=== PATIENT | male | born 1945 | race Caucasian/White ===

== ENCOUNTER → 2019-04-22 10:18 | Outpatient (CLI) | payer MEDICARE, SELFPAY ==
--- NOTE | 2019-04-22 10:33 | XR_ITS ---
PROCEDURE: XR ACUTE ABDOMEN SERIES CLINICAL INDICATION: EPIGASTRIC PAIN,NAUSEA,CONSTIPATION COMPARISON: CXR CHEST(2 VIEWS-NOT PORTABLE) from 05/19/2016 FINDINGS: The lung linares are well expanded and appear clear of infiltrate. There is mild generalized cardiomegaly with aortic tortuosity however the vascularity is normal and there is no pleural fluid. There are bilateral total shoulder prosthesis is noted. Abdominal film show scattered stool and gas in the ascending transverse and descending colon and there is stool within the rectum. There are no dilated loops of small bowel. There is no evidence of free air. There are no abnormal soft tissue shadows. There is prominent multilevel degenerate changes of the lumbar spine with previous fusion of L5 on S1. IMPRESSION: 1. Mild cardiomegaly, no acute pathology noted. 2. Essentially nondiagnostic abdomen, there is no significant evidence of constipation Dictated by: Dr. Wally Saldivar MD 04/22/2019 11:05 Signed by: <Electronically signed by Dr. Wally Saldivar MD in [place]> 04/22/2019 11:05
[2019-04-22 10:35] LABS: Basophils % 0.4 % (0.1-2.0); Eosinophils # 0.2 K/mm3 (0.0-0.4); Eosinophils % 4.2 % (0.1-12.0); Hematocrit 39.8 % (42.0-52.0); Hemoglobin 12.7 g/dL (14.1-18.0); Lymphocytes # 1.5 K/mm3 (0.7-4.5); Lymphocytes % 30.4 % (10-50); Mean Corpuscular HGB Conc 31.8 g/dL (31.8-35.4); Mean Corpuscular Hemoglobin 31.9 pg (27.0-31.2); Mean Corpuscular Volume 100.1 fl (80-94); Mean Platelet Volume 8.4 fl (7.4-10.4); Monocytes # 0.4 K/mm3 (0.1-1.0); Monocytes % 7.5 % (1.7-9.3); Neutrophils # 2.8 K/mm3 (1.8-7.8); Neutrophils % 57.5 % (37.0-80.0); Platelet Count 199 K/mm3 (142-424); Red Blood Count 3.98 M/mm3 (4.60-6.20); Red Cell Distribution Width 12.7 % (11.5-17.5); White Blood Count 4.8 K/mm3 (4.8-10.8)
[2019-04-22 10:49] LABS: Alanine Aminotransferase 33 U/L (12-78); Albumin Level 3.6 gm/dL (3.4-5.0); Albumin/Globulin Ratio 1.2 (1.1-1.8); Alkaline Phosphatase 99 U/L (46-116); Amylase 62 U/L (25-115); Anion Gap 12.1 mEq/L (5-15); Aspartate Amino Transferase 31 U/L (15-37); Bilirubin,Total 0.8 mg/dL (0.2-1.0); Blood Urea Nitrogen 29 mg/dL (7-18); Calcium 9.2 mg/dL (8.5-10.1); Carbon Dioxide 27 mmol/L (21.0-32.0); Chloride 105 mmol/L (98-107); Estimated Glomerular Filt Rate 40 ml/min (>60); GFR (African American) 48 ML/MIN (>60); Globulin 3.1 gm/dl (1.3-3.2); Glucose 87 mg/dL (74-106); Potassium 4.1 mmoL/L (3.5-5.1); Sodium 140 mmol/L (136-145); Total Protein,Serum 6.7 gm/dL (6.4-8.2)
== END ==
PROVIDERS: Visit Provider Internal Medicine
DX: R10.13 Epigastric pain (principal); K59.00 Constipation, unspecified; R11.0 Nausea
CPT/HCPCS: 36415; 74021; 80053; 82150; 85025

== ENCOUNTER → 2019-07-14 08:24 | Outpatient (POV) | payer MEDICARE, SELFPAY | PROVIDERS: Visit Provider Dentist | DX: Z00.00 Encounter for general adult medical examination without abnormal findings (principal) ==

== ENCOUNTER → 2021-07-10 16:26 | Outpatient (CLI) | payer MEDICARE, SELFPAY ==
[2021-07-10 19:05] LABS: Basophils % 0.6 % (0.1-2.0); Eosinophils # 0.2 K/mm3 (0.0-0.4); Hematocrit 44.2 % (42.0-52.0); Hemoglobin 14.4 g/dL (14.1-18.0); Lymphocytes # 1.5 K/mm3 (0.7-4.5); Lymphocytes % 29.4 % (10-50); Mean Corpuscular HGB Conc 32.6 g/dL (31.8-35.4); Mean Corpuscular Hemoglobin 32.5 pg (27.0-31.2); Mean Corpuscular Volume 99.6 fl (80-94); Mean Platelet Volume 10.2 fl (7.4-10.4); Monocytes # 0.5 K/mm3 (0.1-1.0); Monocytes % 8.8 % (1.7-9.3); Neutrophils # 3.1 K/mm3 (1.8-7.8); Neutrophils % 58.2 % (37.0-80.0); Platelet Count 209 K/mm3 (142-424); Red Blood Count 4.44 M/mm3 (4.60-6.20); Red Cell Distribution Width 13.3 % (11.5-17.5); White Blood Count 5.3 K/mm3 (4.8-10.8)
[2021-07-10 19:14] LABS: Chloride 102 mmol/L (98-107); Potassium 3.9 mmoL/L (3.5-5.1); Sodium 141 mmol/L (136-145)
[2021-07-10 19:16] LABS: Alanine Aminotransferase 43 U/L (12-78); Albumin Level 4.1 g/dl (3.5-5.0); Albumin/Globulin Ratio 1.7 (1.1-1.8); Alkaline Phosphatase 112 U/L (38-126); Anion Gap 11.9 mEq/L (5-15); Aspartate Amino Transferase 53 U/L (17-59); Bilirubin,Total 0.6 mg/dl (0.2-1.3); Blood Urea Nitrogen 18 mg/dl (9-20); Carbon Dioxide 31 mmol/L (22.0-30.0); Estimated Glomerular Filt Rate 65 ml/min (>60); GFR (African American) 79 ML/MIN (>60); Globulin 2.4 g/dL (1.3-3.2); Total Protein,Serum 6.5 g/dl (6.3-8.2)
[2021-07-10 19:17] LABS: Calcium 9.2 mg/dl (8.4-10.2); Chol/HDL Ratio 2.1 (1-3.5); Cholesterol 122 mg/dl (140-200); Glucose 74 mg/dl (74-100); HDL Cholesterol 58 mg/dl (40-60); Triglycerides 43 mg/dl (30-150); VLDL Cholesterol 9 mg/dL (0-40)
[2021-07-10 19:28] LABS: Direct LDL Cholesterol 54.02 mg/dL (100-129)
[2021-07-10 21:50] LABS: Prostate Specific Ag Screen 1.6 ng/ml (0.0-4.0)
== END ==
PROVIDERS: Visit Provider Internal Medicine
DX: I25.10 Atherosclerotic heart disease of native coronary artery without angina pectoris (principal); I10 Essential (primary) hypertension; E78.5 Hyperlipidemia, unspecified; M15.0 Primary generalized (osteo)arthritis; N40.1 Benign prostatic hyperplasia with lower urinary tract symptoms; Z12.5 Encounter for screening for malignant neoplasm of prostate
CPT/HCPCS: 80053; 80061; 85025; G0103

== ENCOUNTER → 2022-01-10 12:35 | Outpatient (CLI) | payer MEDICARE, SELFPAY ==
[2022-01-10 13:25] LABS: Basophils % 0.6 % (0.1-2.0); Eosinophils # 0.1 K/mm3 (0.0-0.4); Eosinophils % 2.7 % (0.1-12.0); Hematocrit 43.7 % (42.0-52.0); Hemoglobin 14.7 g/dL (14.1-18.0); Lymphocytes # 1.3 K/mm3 (0.7-4.5); Lymphocytes % 29.7 % (10-50); Mean Corpuscular HGB Conc 33.6 g/dL (31.8-35.4); Mean Corpuscular Hemoglobin 33.1 pg (27.0-31.2); Mean Corpuscular Volume 98.6 fl (80-94); Mean Platelet Volume 9.9 fl (7.4-10.4); Monocytes # 0.4 K/mm3 (0.1-1.0); Monocytes % 9.1 % (1.7-9.3); Neutrophils # 2.5 K/mm3 (1.8-7.8); Neutrophils % 57.8 % (37.0-80.0); Platelet Count 191 K/mm3 (142-424); Red Blood Count 4.43 M/mm3 (4.60-6.20); White Blood Count 4.3 K/mm3 (4.8-10.8)
[2022-01-10 14:11] LABS: Chloride 102 mmol/L (98-107); Sodium 138 mmol/L (136-145)
[2022-01-10 14:13] LABS: Blood Urea Nitrogen 24 mg/dl (9-20); Estimated Glomerular Filt Rate 54 ml/min (>60); GFR (African American) 65 ML/MIN (>60)
[2022-01-10 14:14] LABS: Alanine Aminotransferase 48 U/L (12-78); Albumin Level 3.9 g/dl (3.5-5.0); Albumin/Globulin Ratio 1.6 (1.1-1.8); Alkaline Phosphatase 117 U/L (38-126); Anion Gap 11.3 mEq/L (5-15); Aspartate Amino Transferase 65 U/L (17-59); Bilirubin,Total 0.9 mg/dl (0.2-1.3); Calcium 9.3 mg/dl (8.4-10.2); Carbon Dioxide 28 mmol/L (22.0-30.0); Cholesterol 137 mg/dl (140-200); Globulin 2.5 g/dL (1.3-3.2); Glucose 94 mg/dl (74-100); HDL Cholesterol 63 mg/dl (40-60); Potassium 3.3 mmoL/L (3.5-5.1); Total Protein,Serum 6.4 g/dl (6.3-8.2); Triglycerides 45 mg/dl (30-150); VLDL Cholesterol 9 mg/dL (0-40)
[2022-01-10 14:16] LABS: Chol/HDL Ratio 2.2 (1-3.5)
[2022-01-10 14:25] LABS: Direct LDL Cholesterol 56.46 mg/dL (100-129)
== END ==
PROVIDERS: PCP Internal Medicine; Visit Provider Internal Medicine
DX: I25.10 Atherosclerotic heart disease of native coronary artery without angina pectoris (principal); I10 Essential (primary) hypertension; I73.9 Peripheral vascular disease, unspecified; R73.01 Impaired fasting glucose; E78.5 Hyperlipidemia, unspecified
CPT/HCPCS: 80053; 80061; 85025

== ENCOUNTER → 2022-06-17 16:59 | Outpatient (CLI) | payer MEDICARE, SELFPAY ==
[2022-06-17 18:22] LABS: Basophils % 0.7 % (0.1-2.0); Eosinophils # 0.1 K/mm3 (0.0-0.4); Eosinophils % 1.7 % (0.1-12.0); Hematocrit 43.3 % (42.0-52.0); Hemoglobin 14.2 g/dL (14.1-18.0); Lymphocytes # 1.2 K/mm3 (0.7-4.5); Lymphocytes % 24.6 % (10-50); Mean Corpuscular HGB Conc 32.8 g/dL (31.8-35.4); Mean Corpuscular Hemoglobin 32.7 pg (27.0-31.2); Mean Corpuscular Volume 99.4 fl (80-94); Monocytes # 0.4 K/mm3 (0.1-1.0); Monocytes % 8.2 % (1.7-9.3); Neutrophils # 3.1 K/mm3 (1.8-7.8); Neutrophils % 64.8 % (37.0-80.0); Platelet Count 180 K/mm3 (142-424); Red Blood Count 4.35 M/mm3 (4.60-6.20); Red Cell Distribution Width 13.5 % (11.5-17.5); White Blood Count 4.9 K/mm3 (4.8-10.8)
[2022-06-17 20:29] LABS: Alanine Aminotransferase 51 U/L (12-78); Albumin/Globulin Ratio 1.5 (1.1-1.8); Alkaline Phosphatase 112 U/L (38-126); Aspartate Amino Transferase 69 U/L (17-59); Bilirubin,Total 0.6 mg/dl (0.2-1.3); Blood Urea Nitrogen 18 mg/dl (9-20); Calcium 9.1 mg/dl (8.4-10.2); Carbon Dioxide 30 mmol/L (22.0-30.0); Chloride 101 mmol/L (98-107); Estimated Glomerular Filt Rate 46 ml/min (>60); GFR (African American) 55 ML/MIN (>60); Globulin 2.7 g/dL (1.3-3.2); Glucose 79 mg/dl (74-100); Sodium 143 mmol/L (136-145); Total Protein,Serum 6.7 g/dl (6.3-8.2)
[2022-06-17 20:44] LABS: Erythrocyte Sedimentation Rate 18 mm/hr (0-20)
[2022-06-17 21:32] LABS: Vitamin B12 919 pg/mL (239-931)
[2022-06-17 21:35] LABS: Folate > 20.00 ng/mL
[2022-06-17 23:58] LABS: Free T4 (Free Thyroxine) 0.88 ng/dl (0.78-2.19)
[2022-06-18 12:48] LABS: Thyroid Stimulating Hormone 1.78 uIU/mL (0.465-4.68)
[2022-06-19 12:12] LABS: Rapid Plasma Reagin Ab Titer Non Reactive (NonRea<1:1)
== END ==
PROVIDERS: PCP Internal Medicine; Visit Provider Internal Medicine
DX: R41.3 Other amnesia (principal)
CPT/HCPCS: 80053; 82607; 82746; 83655; 84439; 84443; 85025; 85651; 86592

== ENCOUNTER → 2022-06-25 07:55 | Outpatient (CLI) | payer MEDICARE, SELFPAY ==
--- NOTE | 2022-06-25 07:59 | CT_ITS ---
FINAL REPORT CLINICAL HISTORY: MEMORY LOSS FINDINGS: Axial images of the head were obtained without contrast. Coronal reformatted images were also obtained. This study was performed with techniques to keep radiation doses as low as reasonably achievable (ALARA). Individualized dose reduction techniques using automated exposure control or adjustment of mA and/or kV according to the patient's size were employed. There is generalized age-appropriate atrophy. Periventricular low-attenuation areas are seen consistent with mild chronic ischemic changes. There is no evidence of intracranial hemorrhage or mass. There is no evidence of acute infarct. There is no evidence of shift of the midline structures. No skull abnormality is seen on the bone window images. There is near total opacification of the right sphenoid sinus. IMPRESSION: Atrophy and mild periventricular chronic ischemic changes. No acute intracranial abnormality identified. Reviewed, Interpreted and Dictated by Jim Abdul III, MD Transcribed by Nghia Vega Authenticated and [facility]
== END ==
PROVIDERS: PCP Internal Medicine; Visit Provider Internal Medicine
DX: R41.3 Other amnesia (principal)
CPT/HCPCS: 70450

== ENCOUNTER → 2022-12-26 10:55 | Outpatient (CLI) | payer MEDICARE, SELFPAY ==
--- NOTE | 2022-12-26 11:03 | XR_ITS ---
FINAL REPORT CLINICAL HISTORY: LT KNEE PAIN FINDINGS: 3 views of the left knee were obtained. Postoperative changes are seen from knee arthroplasty. There is no evidence of fracture. Soft tissue calcifications are seen. There are mild vascular calcifications. IMPRESSION: Postoperative changes with no acute abnormality identified. Authenticated and [facility]
== END ==
PROVIDERS: PCP Internal Medicine; Visit Provider Internal Medicine
DX: M25.562 Pain in left knee (principal)
CPT/HCPCS: 73562

== ENCOUNTER → 2023-01-27 12:54 | Outpatient (CLI) | payer MEDICARE, SELFPAY ==
[2023-01-27 14:45] LABS: Alanine Aminotransferase 35 U/L (12-78); Albumin Level 3.9 g/dl (3.5-5.0); Albumin/Globulin Ratio 1.6 (1.1-1.8); Alkaline Phosphatase 104 U/L (38-126); Anion Gap 14.2 mEq/L (5-15); Aspartate Amino Transferase 41 U/L (17-59); Bilirubin,Total 0.7 mg/dl (0.2-1.3); Blood Urea Nitrogen 22 mg/dl (9-20); Carbon Dioxide 31 mmol/L (22.0-30.0); Chloride 101 mmol/L (98-107); Chol/HDL Ratio 2.1 (1-3.5); Cholesterol 121 mg/dl (140-200); Estimated Glomerular Filt Rate 46 ml/min (>60); GFR (African American) 55 ML/MIN (>60); Globulin 2.5 g/dL (1.3-3.2); Glucose 83 mg/dl (74-100); HDL Cholesterol 59 mg/dl (40-60); Potassium 4.2 mmoL/L (3.5-5.1); Sodium 142 mmol/L (136-145); Total Protein,Serum 6.4 g/dl (6.3-8.2); Triglycerides 51 mg/dl (30-150); VLDL Cholesterol 10 mg/dL (0-40)
[2023-01-27 14:56] LABS: Direct LDL Cholesterol 51.57 mg/dL (100-129)
[2023-01-27 15:15] LABS: Prostate Specific Ag Screen 1.6 ng/ml (0.0-4.0)
== END ==
PROVIDERS: PCP Internal Medicine; Visit Provider Internal Medicine
DX: I25.10 Atherosclerotic heart disease of native coronary artery without angina pectoris (principal); I10 Essential (primary) hypertension; E78.5 Hyperlipidemia, unspecified; M15.0 Primary generalized (osteo)arthritis; Z12.5 Encounter for screening for malignant neoplasm of prostate
CPT/HCPCS: 80053; 80061; G0103

== ENCOUNTER → 2023-01-30 10:11 | Outpatient (CLI) | payer MEDICARE, SELFPAY ==
--- NOTE | 2023-01-30 10:20 | XR_ITS ---
FINAL REPORT TECHNIQUE: 5 views CLINICAL HISTORY: LOW BACK PAIN. LEFT HIP AND LEG PAIN COMPARISON: None FINDINGS: Five views of the lumbar spine were obtained. Films show a posterior interbody fusion at the L4-5 level. There is advanced disc space narrowing at the T12-L1, L1-2, L2-3, and L3-4 levels. There is mild loss of vertebral body height at the L1 and L2 levels, that appears chronic. There is mild spondylosis of L2 on L3. There are marked advanced hypertrophic changes from the T11 level through the L4 level. IMPRESSION: Prior interbody fusion at the L4-5 level. Marked advanced heterotrophic changes from T11 through the L4 level along with multilevel advanced degenerative disc disease. Reviewed, Interpreted and Dictated by Kareem Gonzalez MD Transcribed by Beba Luque Authenticated and [facility]
== END ==
PROVIDERS: PCP Internal Medicine; Visit Provider Internal Medicine
DX: M54.50 Low back pain, unspecified (principal)
CPT/HCPCS: 72110

== ENCOUNTER → 2023-07-01 13:22 | Outpatient (CLI) | payer MEDICARE, SELFPAY ==
[2023-07-01 15:53] LABS: Alanine Aminotransferase 39 U/L (12-78); Albumin Level 4.3 g/dl (3.5-5.0); Albumin/Globulin Ratio 1.7 (1.1-1.8); Alkaline Phosphatase 96 U/L (38-126); Anion Gap 11.4 mEq/L (5-15); Aspartate Amino Transferase 52 U/L (17-59); Bilirubin,Total 0.8 mg/dl (0.2-1.3); Blood Urea Nitrogen 18 mg/dl (9-20); Calcium 9.5 mg/dl (8.4-10.2); Carbon Dioxide 31 mmol/L (22.0-30.0); Chloride 103 mmol/L (98-107); Chol/HDL Ratio 1.9 (1-3.5); Cholesterol 122 mg/dl (140-200); Estimated Glomerular Filt Rate 49 ml/min (>60); GFR (African American) 59 ML/MIN (>60); Globulin 2.6 g/dL (1.3-3.2); Glucose 80 mg/dl (74-100); HDL Cholesterol 63 mg/dl (40-60); Potassium 4.4 mmoL/L (3.5-5.1); Sodium 141 mmol/L (136-145); Total Protein,Serum 6.9 g/dl (6.3-8.2); Triglycerides 39 mg/dl (30-150); VLDL Cholesterol 8 mg/dL (0-40)
[2023-07-01 16:04] LABS: Direct LDL Cholesterol 52.58 mg/dL (100-129)
== END ==
PROVIDERS: PCP Internal Medicine; Visit Provider Internal Medicine
DX: I25.10 Atherosclerotic heart disease of native coronary artery without angina pectoris; I10 Essential (primary) hypertension; E78.5 Hyperlipidemia, unspecified; M16.0 Bilateral primary osteoarthritis of hip; Z96.652 Presence of left artificial knee joint
CPT/HCPCS: 80053; 80061

== ENCOUNTER 2023-09-04 09:26 | Outpatient (CLI) | payer MEDICARE, SELFPAY ==
--- NOTE | 2023-09-04 09:35 | XR_ITS ---
FINAL REPORT CLINICAL HISTORY: .pain COMPARISON: 12/26/2022 FINDINGS: Left knee Three views were obtained. There is no acute fracture or dislocation. The patient is status post knee arthroplasty. Moderate joint effusion is identified. IMPRESSION: Moderate joint effusion. Reviewed, Interpreted and Dictated by Jim Abdul III, MD Transcribed by Anabell Woodward Authenticated and [facility]
== END 2023-09-04 23:59 ==
LOC: RAD 09:27
PROVIDERS: PCP Internal Medicine; Visit Provider Internal Medicine
DX: M25.562 Pain in left knee (principal)
CPT/HCPCS: 73562

== ENCOUNTER 2024-05-11 11:40 | Outpatient (CLI) | payer MEDICARE, SELFPAY ==
[2024-05-11 17:17] LABS: Basophils % 0.4 % (0.1-2.0); Eosinophils # 0.1 K/mm3 (0.0-0.4); Eosinophils % 2.6 % (0.1-12.0); Hematocrit 45.8 % (42.0-52.0); Hemoglobin 14.6 g/dL (14.1-18.0); Lymphocytes # 1.5 K/mm3 (0.7-4.5); Lymphocytes % 30.4 % (10-50); Mean Corpuscular HGB Conc 31.9 g/dL (31.8-35.4); Mean Corpuscular Hemoglobin 32.4 pg (27.0-31.2); Mean Corpuscular Volume 101.6 fl (80-94); Mean Platelet Volume 11.1 fl (7.4-10.4); Monocytes # 0.5 K/mm3 (0.1-1.0); Monocytes % 10.1 % (1.7-9.3); Neutrophils # 2.7 K/mm3 (1.8-7.8); Neutrophils % 56.5 % (37.0-80.0); Platelet Count 169 K/mm3 (142-424); Red Blood Count 4.51 M/mm3 (4.60-6.20); Red Cell Distribution Width 13.5 % (11.5-17.5); White Blood Count 4.8 K/mm3 (4.8-10.8)
[2024-05-11 18:19] LABS: Alanine Aminotransferase 42 U/L (12-78); Albumin Level 3.9 g/dl (3.5-5.0); Albumin/Globulin Ratio 1.4 (1.1-1.8); Alkaline Phosphatase 97 U/L (38-126); Anion Gap 6.8 mEq/L (5-15); Aspartate Amino Transferase 47 U/L (17-59); Bilirubin,Total 0.9 mg/dl (0.2-1.3); Blood Urea Nitrogen 21 mg/dl (9-20); Calcium 9.3 mg/dl (8.4-10.2); Carbon Dioxide 33 mmol/L (22.0-30.0); Chloride 106 mmol/L (98-107); Chol/HDL Ratio 2.2 (1-3.5); Cholesterol 131 mg/dl (140-200); Estimated Glomerular Filt Rate 65 ml/min (>60); GFR (African American) 78 ML/MIN (>60); Globulin 2.8 g/dL (1.3-3.2); Glucose 77 mg/dl (74-100); HDL Cholesterol 59 mg/dl (40-60); Potassium 3.8 mmoL/L (3.5-5.1); Sodium 142 mmol/L (136-145); Total Protein,Serum 6.7 g/dl (6.3-8.2); Triglycerides 53 mg/dl (30-150); VLDL Cholesterol 11 mg/dL (0-40)
[2024-05-11 18:30] LABS: Direct LDL Cholesterol 55.17 mg/dL (100-129)
[2024-05-11 18:48] LABS: Prostate Specific Ag Screen 1.4 ng/ml (0.0-4.0)
[2024-05-11 19:07] LABS: Vitamin B12 910 pg/mL (239-931)
== END 2024-05-11 23:59 | disposition home or self-care (01) ==
LOC: LAB.DROPOF 05-12 09:45
PROVIDERS: PCP Internal Medicine; Visit Provider Internal Medicine
DX: D75.89 Other specified diseases of blood and blood-forming organs (principal); F03.90 Unspecified dementia, unspecified severity, without behavioral disturbance, psychotic disturbance, mood disturbance, and anxiety; I10 Essential (primary) hypertension; E78.5 Hyperlipidemia, unspecified; Z12.5 Encounter for screening for malignant neoplasm of prostate
CPT/HCPCS: 80053; 80061; 82607; 85025; G0103

== ENCOUNTER 2025-04-26 12:10 | Outpatient (CLI) | payer MEDICARE, SELFPAY ==
--- OUTSIDE RECORDS SUMMARY | 2012-05-06 12:01 | XMS_ITS | Continuity of Care Document ---
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 It does not include entries that were removed or entered in error. Problem Status Onset Date Problem Type Date of Resolution Comments Source Actinic Keratosis (ICD-9-CM 702.0) Active Condition [place] [facility] Carpal Tunnel Syndrome Active Condition January 24, 2004 Entered By: MAURICIO DUPREE Comment: s/p repair bilat [place] Chronic Low Back Pain Active Condition [place] Colonoscopy Active Condition Oct 09, 2009 Entered By: RAMILA DOZIER IEBRIAN Comment: in 2007/ normal [facility] Degeneration of intervertebral disc (ICD-9-CM 722.6) Active Condition [place] [facility] 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) Active Condition [facility] Essential Hypertension Active Condition [place] Gastroesophageal reflux disease Active Condition [place] Gastroesophageal reflux disease Active Condition [place] Gastroesophageal Reflux Disorder * (ICD-9-CM 530.81) Active Condition [facility] Hernia, Inguinal Active Condition Aug 12, 2011 Entered By: RAMILA DOZIER IEBRIAN Comment: s/p bilateral surgery in [facility] Hypercholesterolemia Active Condition [facility] Hypertension Active Condition [facility] Hypertrophy (Benign) of Prostate without Urinary obstruction Active Condition [place] Lumbago * (ICD-9-CM 724.2) Active Condition Oct 17, 2010 Entered By: RAMILA DOZIER IEBRIAN Comment: s/p surgery in May 2010 /fusion [facility] Myalgia and myositis (ICD-9-CM 729.1) Active Condition [facility] Obesity Active Condition [facility] Osteoarthritis Active Condition [place] [facility] Osteoarthrosis, localized, primary, involving other specified sites (ICD-9-CM 71 Active Condition [facility] Other General Medical Examination for Administrative Purposes (ICD-9-CM V70.3) Active Condition [place] [facility] Pain in joint involving shoulder region (ICD-9-CM 719.41) Active Condition [place] [facility] Sciatica * (ICD-9-CM 724.3) Active Condition [facility] Simple obesity Active Condition [place] Thoracic or lumbosacral neuritis or radiculitis (ICD-9-CM 724.4) [facility] Unspecified site of sacroiliac region sprain (ICD-9-CM 846.9) Active Condition [facility] Medications Combined list of outpatient medications from Department of Defense and [facility] Affairs facilities.Medications provided include 1) outpatient medications from the last 15 months, and 2) patient-reported medications. Medication Details Route Status Patient Instructions Prescription Expires Prescription Number Last Dispense Date Ordering Provider Order Date Order Qty Source ACETAMINOPH EN 325MG TAB TAKE TWO TABLETS BY MOUTH THREE TIMES A DAY ORAL ACTIVE CHINMAY JUNG W 2009 [place] [facility] ERVIN ACETAMINOPH EN 325MG TAB TAKE TWO TABLETS BY MOUTH Q6HR PRN ORAL ACTIVE ESTRELLA VOGEL 2007 [facility] DILTIAZEM (EQV-TIAZAC AB4) 240MG 24HR CAP TAKE 1 CAPSULE BY MOUTH DAILY ORAL ACTIVE VERITO VOGELBIETA 2007 [facility] DILTIAZEM (EQV-TIAZAC AB4) 240MG 24HR CAP TAKE 1 CAPSULE BY MOUTH DAILY ORAL ACTIVE CHINMAY JUNG W 2011 [place] [facility] DOXAZOSIN MESYLATE 4MG TAB TAKE ONE TABLET BY MOUTH EACH MORNING AT 10AM ORAL ACTIVE ESTRELLA VOGEL 2007 [facility] ETODOLAC 400MG TAB TAKE ONE TABLET BY MOUTH TWICE A DAY ORAL ACTIVE CHINMAY JUNG W 2011 [place] [facility] ETODOLAC 400MG TAB TAKE ONE TABLET BY MOUTH TWICE A DAY ORAL ACTIVE ESTRELLA VOGEL 2007 [facility] HYDROCHLORO THIAZIDE 25MG TAB TAKE ONE TABLET BY MOUTH DAILY ORAL ACTIVE CHINMAY JUNG W 2011 [place] [facility] HYDROCHLORO THIAZIDE 25MG TAB TAKE ONE TABLET BY MOUTH EACH MORNING AT 10AM ORAL ACTIVE ESTRELLA VOGEL 2007 [facility] PRAVASTATIN NA 40MG TAB TAKE ONE TABLET BY MOUTH AT BEDTIME ORAL ACTIVE CHINMAY JUNG W 2011 [place] [facility] RANITIDINE HCL 150MG TAB TAKE ONE TABLET BY MOUTH ORAL ACTIVE ESTRELLA VOGEL 2007 [facility] RANITIDINE HCL 300MG TAB TAKE ONE TABLET BY MOUTH TWICE A DAY ORAL ACTIVE CHINMAY JUNG W 2011 [place] [facility] SIMVASTATIN 80MG TAB TAKE ONE-HALF TABLET BY MOUTH DAILY AT BEDTIME ORAL ACTIVE ESTRELLA VOGEL 2007 [facility] TERAZOSIN HCL 10MG CAP TAKE 1 CAPSULE BY MOUTH AT BEDTIME ORAL ACTIVE SARA,J AN 2011 [place] [facility] TRAMADOL HCL 50MG TAB TAKE ONE TABLET BY MOUTH PRN ORAL ACTIVE ESTRELLA VOGEL 2007 [facility] Immunizations Combined list of available immunizations from the Department of Defense and Veterans Affairs facilities. Immunization Series Date Given Administered By Site Reaction Lot Number CVX Code Drug Debrander Status Comments Source INFLUENZA, UNSPECIFIED FORMULATION 2011 88 complet ed [facility] PNEUMOCOCCAL, UNSPECIFIED FORMULATION 2011 109 complet ed [facility] INFLUENZA A & B (HISTORICAL) 2010 88 complet ed [place] [facility] [place] INFLUENZA A & B (HISTORICAL) 2009 88 complet ed [place] [facility] [place] INFLUENZA, UNSPECIFIED FORMULATION 2009 88 complet ed [facility] INFLUENZA, UNSPECIFIED FORMULATION 2008 88 complet ed [facility] FLU,3 YRS (HISTORICAL) 2008 88 complet ed [place] [facility] [place] FLU,3 YRS (HISTORICAL) 2007 88 complet ed [place] INFLUENZA, UNSPECIFIED FORMULATION 2007 88 complet ed [facility] PNEUMOCOCCAL, UNSPECIFIED FORMULATION 2007 109 complet ed [place] INFLUENZA, UNSPECIFIED FORMULATION 2006 88 complet ed [facility] INFLUENZA, UNSPECIFIED FORMULATION 2006 88 complet ed [facility] INFLUENZA A & B (HISTORICAL) 2006 88 complet ed [place] INFLUENZA, UNSPECIFIED FORMULATION 2005 88 complet ed [facility] INFLUENZA A & B (HISTORICAL) 2005 88 complet ed no reaction [place] [facility] [place] FLU,3 YRS (HISTORICAL) 2004 MIRIAM MONROY 88 complet ed [place] INFLUENZA, UNSPECIFIED FORMULATION 2004 88 complet ed [facility] INFLUENZA A & B (HISTORICAL) 2003 88 complet ed no reaction [place] [facility] [place] TD(ADULT) UNSPECIFIED FORMULATION 2003 NONE 139 complet ed Completed Series, LOT #[id number]; EXP. 10/06 [place] TD(ADULT) UNSPECIFIED FORMULATION 2003 139 complet ed [facility] INFLUENZA A & B (HISTORICAL) 2002 88 complet ed TAKES YEARLY [place] [facility]LL[facility] PNEUMOCOCCAL (HISTORICAL) 2001 109 complet ed [facility] Social History Combined list of available smoking, tobacco, and other social history from Department of Defense and [facility] facilities. Social History Type Response Date Comment Source Tobacco smoking status NHIS LIFETIME NON-USER OF TOBACCO 03/15/2012 [facility] History of tobacco use V9 LIFETIME NON-USER OF TOBACCO 01/16/2012 [facility] History of tobacco use LIFETIME NON TOBACCO USER 08/12/2011 quit 20+ years ago [facility] History of tobacco use V9 QUIT TOBACCO >7 YEARS AGO 01/16/2011 [facility] History of tobacco use LIFETIME NON TOBACCO USER 10/17/2010 [facility] History of tobacco use V9 QUIT TOBACCO >7 YEARS AGO 12/26/2009 [facility] History of tobacco use LIFETIME NON TOBACCO USER 10/09/2009 no [facility] History of tobacco use LIFETIME NON TOBACCO USER 08/21/2008 [facility] History of tobacco use PREVIOUS TOBACCO USER 08/19/2007 [facility] History of tobacco use V9 QUIT TOBACCO >7 YEARS AGO 12/23/2006 [facility] History of tobacco use LIFETIME NON TOBACCO USER 09/08/2006 [facility] History of tobacco use HF V9 LIFETIME NON-SMOKER 07/01/2006 [facility] History of tobacco use LIFETIME NON TOBACCO USER 08/20/2005 [facility] History of tobacco use HF V9 CURRENT NON-SMOKER 06/26/2005 QUIT MANY YRS AGO [facility] History of tobacco use HF V9 LIFETIME NON-SMOKER 01/24/2004 [facility] Advance Directives List of completed, amended, or rescinded Advance Directives on record at [facility] of [facility] facilities. An actual copy of the Directive is not included. Date Advance Directive Provider Source 07/13/2009 [facility] 07/02/2009 ADVANCE DIRECTIVE DISCUSSION HELGA WHITFIELD [facility]
[2025-04-26 14:06] LABS: Albumin Level 4.3 g/dl (3.5-5.0); Chloride 105 mmol/L (98-107); Sodium 143 mmol/L (136-145)
[2025-04-26 14:07] LABS: Potassium 3.7 mmoL/L (3.5-5.1)
[2025-04-26 14:09] LABS: Alanine Aminotransferase 21 U/L (12-78); Albumin/Globulin Ratio 1.7 (1.1-1.8); Alkaline Phosphatase 101 U/L (38-126); Anion Gap 12.7 mEq/L (5-15); Aspartate Amino Transferase 36 U/L (17-59); Bilirubin,Total 1.0 mg/dl (0.2-1.3); Blood Urea Nitrogen 16 mg/dl (9-20); Carbon Dioxide 29 mmol/L (22.0-30.0); Creatinine,Serum 1.20 mg/dl (0.66-1.25); Estimated Glomerular Filt Rate 58 ml/min (>60); GFR (African American) 71 ML/MIN (>60); Globulin 2.6 g/dL (1.3-3.2); Total Protein,Serum 6.9 g/dl (6.3-8.2)
[2025-04-26 14:10] LABS: Calcium 9.2 mg/dl (8.4-10.2); Cholesterol 138 mg/dl (140-200); Glucose 92 mg/dl (74-100); HDL Cholesterol 63 mg/dl (40-60); Triglycerides 50 mg/dl (30-150)
--- OUTSIDE RECORDS SUMMARY | 2025-04-28 11:23 | XMS_ITS | Clinical Summary ---
Author Organization [facility] Address [address] [place] [address] Care Team Providers Care Transplanter Orchid Name Role Phone Isaac Salamanca MD Primary Care Provider [phone] Allergies No known active allergies Medications acetaminophen (TYLENOL) 650 MG 8 hr tablet Take 650 mg by mouth 2 (Two) Times a Day. Active diltiaZEM CD (CARDIZEM CD) 240 MG 24 hr capsule Take 240 mg by mouth Daily. Active hydrochlorothia zide (HYDRODIURIL) 25 MG tablet Take 25 mg by mouth Daily. Active raNITIdine (ZANTAC) 300 MG tablet Take 300 mg by mouth At Night As Needed for Indigestion or Heartburn. Active terazosin (HYTRIN) 5 MG capsule Take 10 mg by mouth Every Night. Active finasteride (PROSCAR) 5 MG tablet Take 5 mg by mouth Daily. Active docusate sodium 100 MG capsule Take 100 mg by mouth 2 (Two) Times a Day As Needed for Constipation. 60 capsule 7 Active lisinopril (PRINIVIL,ZESTR IL) 2.5 MG tablet Take 2.5 mg by mouth Every Night. Active etodolac (LODINE) 400 MG tablet Take 400 mg by mouth 2 (Two) Times a Day. Active Glucosamine-Cho ndroit-Vit C-Mn (GLUCOSAMINE 1500 COMPLEX) capsule Take 4,500 mg by mouth Daily. Active atorvastatin (LIPITOR) 80 MG tablet Take 80 mg by mouth Every Night. Active famotidine (PEPCID) 20 MG tablet Take 20 mg by mouth 2 (Two) Times a Day As Needed. Active tamsulosin (FLOMAX) 0.4 MG capsule 24 hr capsule Take 1 capsule by mouth Daily. Active Dilt-XR 240 MG 24 hr capsule Take 240 mg by mouth Daily. 2 Active terazosin (HYTRIN) 10 MG capsule Take 10 mg by mouth every night at bedtime. 1 Active Ropivacine HCl-NaCl (NAROPIN)Indica tions:Acute Pain 12 mg/hr by Peripheral Nerve route Continuous. Indications: Acute Pain 2 Active aspirin (aspirin) 81 MG EC tablet Take 1 tablet by mouth 2 (Two) Times a Week. Twice per week (thu and thu) 2 Active Active Problems Problem Noted Date Diagnosed Date Postoperative hypoxia, improved 10/30/2021 Right shoulder pain 10/28/2021 Status post reverse total sh oulder replacement, right, revision 10/28/2021 Acute postoperative pain 04/03/2020 Arthritis of left knee 04/02/2020 Status post total left knee replacement 04/02/20 20 Leukocytosis, mild, likely reactive 02/24/2017 Acute blood loss anemia, mild, asymptomatic 01/30 Rotator cuff arthropathy 02/23/2017 S/P Revision left shoulder h emiarthroplasty to reverse total shoulder arthroplasty with revision of both components 02/23/2017 HTN 02/23/2017 Hyperlipidemia 02/23/2017 BPH (benign prostatic hyperplasia) 02/23/2017 GERD (gastroesophageal reflux disease) 7 Prediabetes 02/23/2017 Resolved Problems Problem Noted Date Diagnosed Date Resolved Date Rotator cuff tear arthropathy, left 03/29/2018 03/30/2018 Immunizations Immunization Administration Dates Next Due COVID-19 (MODERNA) 1st,2nd,3rd Dose Monovalent 1 Social History Tobacco Use Types Packs/Day Years Used Date Smoking Tobacco: Never Smokeless Tobacco: Former Chew Quit: 1989 Alcohol Use Standard Drinks/Week Comments No 0 (1 standard drink = 0.6 oz pur e alcohol) Abuse Screen Answer Date Recorded Unsafe at Home or Work/School Not on file Feels Threatened by Someone? Not on file 07/2023 Does Anyone Keep You from Co ntacting Others or Doint Things Outside the Home? Not on file 06/10/2023 Physical Sign of Abuse Present Not on file 1 Housing Stability Answer Date Recorded Current Living Arrangements Not on file 05/31 Potentially Unsafe Housing Conditions Not on vernon e 06/10/2023 Family and Community Support Answer Antoni e Recorded Help with Day-to-Day Activities Not on file 06/10/2023 Lonely or Isolated Not on file 06/10/2023 Employment Answer Date Recorded Do you want help finding or keeping work or a nadia b? Not on file 06/10/2023 Disabilities Answer Date Recorded Concentrating, Remembering, or Making Decisions Difficulty Not on file 06/10/2023 Doing Errands Independently Difficulty Not on fi le 06/10/2023 Education Answer Date Recorded Help with school or training? Not on file Preferred Language Not on file 06/10/2023 Sex and Gender Information Value Date Recorded Sex Assigned at Not on file Legal Sex Male 10:49 AM EDT Gender Identity Not on file Sexual Orientation Not on file Last Filed Vital Signs Vital Sign Reading Time Taken Comments Blood Pressure 139/80 10/30/2021 10:42 AM EST Pulse 71 10/30/2021 8:02 AM EST Temperature 36.6 C (97.9 F) 10/30/2021 11:00 AM EST Respiratory Rate 18 10/30/2021 11:00 AM EST Oxygen Saturation 91% 10/30/2021 12:33 PM EST Inhaled Oxygen Concentration - - Weight 87.1 kg (192 lb 0.3 oz) 10/28/2021 10:51 AM EST Height 175.3 cm (5' 9.02 ) 10/28/2021 10:[address] Body Mass Index 28.34 10/28/2021 10:51 AM EST Plan of Treatment Health Maintenance Due Date Last Done Comments LIPID PANEL 1946 TDAP/TD VACCINES (1 - Tdap) 1965 COLOGUARD 1991 COLON CANCER SCREENING 5 YEA R SIGMOIDOSCOPY 1991 COLONOSCOPY [address] CANCER SCREENING 1991 CT COLONOGRAPHY 1991 FECAL OCCULT BLOOD TEST 1991 FIT Testing (1 year) 1991 ZOSTER VACCINE (1 of 2) 1996 ANNUAL PHYSICAL 02/09/2017 HEPATITIS C SCREENING 02/09/2017 Pneumococcal Vaccine 50+ (2 of 2 - PPSV23) 05/31/2019 05/31/2018 RSV Vaccine - Adults (1 - 1- dose 75+ series) 2021 COVID-19 Vaccine (2 - 2023-2 5 season) 2024 06/25/2021 INFLUENZA VACCINE 05/31/2025 05/24/2021, , 05/31/2018, Additional history exists Medical Devices Implanted Type Area Electrician Deck Device Identifier Shelf Expiration Date Model / Serial / Lot Stem Hum Giselle Equinoxe Pressfit 13mm - [id number] - [id number] Implanted:Qty: 1 on 02/23/2017 by Clay Charles MD at [facility] Implant Right: Shoulder EXACTECH 10/29/2025 [id number] / [id number] / Liner Hum Equinoxe Rev Shldr 42 Pls0 - [id number] - [id number] Implanted:Qty: 1 on 02/23/2017 by Clay Charles MD at [facility] Implant Right: Shoulder EXACTECH 01/29/2022 [id number] / [id number] / Try Hum Equinoxe Adpt Rev Shldr Pls0 - [id number] Implanted:Qty: 1 on 02/23/2017 by Clay Charles MD at [facility] Implant Right: Shoulder EXACTECH [id number] / / Totl Shldr Rev Exactech - [id number] Implanted:Qty: 1 on 02/23/2017 by Clay Charles MD at [facility] Implant Right: Shoulder EXACTECH CAPSHOULREVEX ACS4 / / Plt José Luis Equinoxe Aug Supr Post Rev Rt - [id number] - [id number] Implanted:Qty: 1 on 02/23/2017 by Clay Charles MD at [facility] Implant Right: Shoulder EXACTECH 11/04/2026 [id number] / [id number] / Scrw Compr Equinoxe Lk 4.5x38mm - [id number] - [id number] Implanted:Qty: 1 on 02/23/2017 by Clay Charles MD at [facility] Implant Right: Shoulder EXACTECH 01/12/2021 [id number] / [id number] / Scrw Compr Equinoxe Lk 4.5x30mm - [id number] - [id number] Implanted:Qty: 1 on 02/23/2017 by Clay Charles MD at [facility] Implant Right: Shoulder EXACTECH 11/27/2021 [id number] / [id number] / Scrw Compr Equinoxe Lk 4.5x26mm - [id number] - [id number] Implanted:Qty: 1 on 02/23/2017 by Clay Charles MD at [facility] Implant Right: Shoulder EXACTECH 01/14/2022 [id number] / [id number] / Scrw Compr Equinoxe Lk 4.5x22mm - [id number] - [id number] Implanted:Qty: 1 on 02/23/2017 by lCay Charles MD at [facility] Implant Right: Shoulder EXACTECH 12/22/2021 [id number] / [id number] / Glenosphere Equinoxe Rev Shldr 42mm - [id number] - [id number] Implanted:Qty: 1 on 02/23/2017 by Clay Charles MD at [facility] Implant Right: Shoulder EXACTECH 12/29/2026 [id number] / [id number] / Scrw Equinx Glenosphere Lk - [id number] - [id number] Implanted:Qty: 1 on 02/23/2017 by Clay Charles MD at [facility] Implant Right: Shoulder EXACTECH 06/04/2021 [id number] / [id number] / Scrw Equinoxe Torq Define Rev Shldr Kt - [id number] - [id number] Implanted:Qty: 1 on 02/23/2017 by Clay Charles MD at [facility] Implant Right: Shoulder EXACTECH 01/21/2022 [id number] / [id number] / Baseplt Aug W/Mini Tpr Adapt Lg - [id number] Implanted:Qty: 1 on 03/29/2018 by Clay Charles MD at [facility] Implant Left: Shoulder MIREILLE [employer] INC 02/10/2023 [id number] / / [id number] Scrw Comprnsv Cntrl 6.5x25mm Reus - [id number] Implanted:Qty: 1 on 03/29/2018 by Clay Charles MD at [facility] Implant Left: Shoulder [employer] 02/18/2028 [id number] / / [id number] Scrw Fix Lk Hex 4.16g99fd - [id number] Implanted:Qty: 1 on 03/29/2018 by Clay Charles MD at [facility] Implant Left: Shoulder [employer] 08/26/2027 [id number] / / [id number] Scrw Fix Lk Hex 4.04z54se - [id number] Implanted:Qty: 1 on 03/29/2018 by Clay Charles MD at [facility] Implant Left: Shoulder [employer] 02/05/2028 [id number] / / [id number] Scrw Fix Lk Hex 4.70t52vl - [id number] Implanted:Qty: 1 on 03/29/2018 by Clay Charles MD at [facility] Implant Left: Shoulder [employer] 02/19/2028 [id number] / / [id number] Scrw Fix Lk Hex 4.78f21gc - [id number] Implanted:Qty: 1 on 03/29/2018 by Clay Charles MD at [facility] Implant Left: Shoulder [employer] 03/09/2028 [id number] / / [id number] Glenosphere Versa Dial Fxd Offst36 Pls6 - [id number] Implanted:Qty: 1 on 03/29/2018 by Clay Charles MD at [facility] Implant Left: Shoulder [employer] 11/23/2027 [id number] / / [id number] Liner Hum Trabecular Rev Pa 36 Pls3 - [id number] Implanted:Qty: 1 on 03/29/2018 by Clay Charles MD at [facility] Implant Left: Shoulder [employer] 10/28/2025 [id number] / / [id number] Cmt Bone Palacos R Hi/Visc 1x40 - [id number] Implanted:Qty: 2 on 04/02/2020 by Bryant Colin MD at [facility] Implant Left: Knee [employer] 06/30/2023 [id number] / / [id number] Sut Contrl Tiss Stratafix Symm Pds Plus Garry Ct-1 45cm - [id number] Implanted:Qty: 1 on 04/02/2020 by Bryant Colin MD at [facility] Implant Left: Knee ETHICON DIV OF J AND J 09/30/2021 [id number] / / [id number] Base Tib/Kn Gen2 Nonpor Ti Sz6 Lt - [id number] Implanted:Qty: 1 on 04/02/2020 by Bryant Colin MD at [facility] Implant Left: Knee AUGUSTINE AND NEPHEW 11/13/2029 [id number] / / [id number] Insrt Art Legion Cr Hf Xlpe Sz5to6 9mm - [id number] Implanted:Qty: 1 on 04/02/2020 by Bryant Colin MD at [facility] Implant Left: Knee AUGUSTINE AND NEPHEW 09/30/2029 [id number] / / [id number] Comp Fem Legion Oxinium Cr Sz6 Lt - [id number] Implanted:Qty: 1 on 04/02/2020 by Bryant Colin MD at [facility] Implant Left: Knee AUGUSTINE AND NEPHEW 12/17/2028 [id number] / / [id number] Pat Gen2 Resrf 35mm - [id number] Implanted:Qty: 1 on 04/02/2020 by Bryant Colin MD at [facility] Implant Left: Knee AUGUSTINE AND NEPHEW 10/24/2029 [id number] / / [id number] Totl Kn Dillon Augustine Nephew - [id number] Implanted:Qty: 1 on 04/02/2020 by Bryant Colin MD at [facility] Implant Left: Knee AUGUSTINE AND NEPHEW CAPKNEETOTALS N2 / / Kt Lk/Cap Shldr Glenosphere/Ex t 42mm - [id number] - [id number] Implanted:Qty: 1 on 10/28/2021 by Clay Charles MD at [facility] Implant Right: Shoulder EXACTECH 05/30/2031 [id number] / [id number] / Sut Fw #2 W/Tpr Ndl / Cir 38in 97cm 26.5mm Jonny - [id number] Implanted:Qty: 1 on 10/28/2021 by Clay Charles MD at [facility] Implant Right: Shoulder ARTHREX [id number] / / Scrw Equinx Glenosphere Lk - [id number] - [id number] Implanted:Qty: 1 on 10/28/2021 by Clay Charles MD at [facility] Implant Right: Shoulder EXACTECH 07/16/2026 [id number] / [id number] / Scrw Equinoxe Torq Define Rev Shldr Kt - [id number] - [id number] Implanted:Qty: 1 on 10/28/2021 by Clay Charles MD at [facility] Implant Right: Shoulder EXACTECH 07/03/2026 [id number] / [id number] / Liner Hum Equinoxe Rev Shldr 42 Pls2.5 - [id number] - [id number] Implanted:Qty: 1 on 10/28/2021 by Clay Charles MD at [facility] Implant Right: Shoulder EXACTECH 04/28/2026 [id number] / [id number] / Try Hum Equinoxe Adpt Rev Shldr Pls0 - [id number] Implanted:Qty: 1 on 10/28/2021 by Clay Charles MD at [facility] Implant Right: Shoulder EXACTECH [id number] / / [id number] Explanted Type Area Electrician Deck Device Identifier Shelf Expiration Date Model / Serial / Lot Андрей Funez 3.2mm 9in - [id number] Explanted:Qty : 1 on 03/29/2018 by Clay Charles MD at [facility] Implant Left: Shoulder MI[employer]ILLE [employer] 02/09/2028 [id number] / / [id number] [facility] Advance Directives Documents on File Type Date Recorded Patient Division Operations Manager Expl anation PATIENT ADVANCE DIRECTIVES - SCAN 11/14/2021 12:53 PM [place] ADV[place] DIRECTIVE/LIVING WILL/DURABLE POA FOR HEALTH CARE * CPR (Attempt to Resuscitate) (Latest Code Status on File) Date Activated Date Inactivated Comments 10/28/2021 6:00 PM 10/30/2021 3:58 PM Question Answer Comments Code Status (Patient has no pulse and is not breathing): CPR (Attempt to Resuscitate) Medical Interventions (Patie nt has pulse or is breathing): Full Support * CPR (Attempt to Resuscitate) Date Activated Date Inactivated Comments 04/02/2020 10:59 AM 04/03/2020 6:05 PM Question Answer Comments Code Status (Patient has no pulse and is not breathing): CPR (Attempt to Resuscitate) Medical Interventions (Patie nt has pulse or is breathing): Full * CPR (Attempt to Resuscitate) Date Activated Date Inactivated Comments 03/29/2018 12:00 PM 03/30/2018 3:48 PM Question Answer Comments Code Status (Patient has no pulse and is not breathing): CPR (Attempt to Resuscitate) Medical Interventions (Patie nt has pulse or is breathing): Full * Full Code Date Activated Date Inactivated Comments 02/23/2017 11:08 AM 02/24/2017 4:47 PM Healthcare Agents on File Name Relationship Healthcare Agent Relationsla p Communication Peggy Sparrow Spouse Health Care Surrogate Care Teams Transplanter Orchid Relationship Specialty Start Date End Date Isaac Salamanca MD [address] [facility] [address] [place] [address] PCP - General Internal Medicine 01/30/17
--- OUTSIDE RECORDS SUMMARY | 2025-04-28 11:23 | XMS_ITS ---
Author Organization Unknown [facility] Start Date Provider Encounter for Check-up [id number] [facility]
--- OUTSIDE RECORDS SUMMARY | 2025-04-28 11:23 | XMS_ITS | Patient Health Record ---
Author Organization [facility] Billing Info Address [address] [place] [id number] Care Team Providers Care Sample Paster Name Role Phone RAMESH JOHN Unavailable [phone] Reason For Referral No Information Medications Medication SIG (Take, Route, Frequency, Duration) Notes Start Date End Date Status Atorvastatin Calcium 80 MG Oral for 90 Active Glucosamine 500 MG 4 capsule with a thien l Orally Daily 09/05/2019 Active Tamsulosin HCl 0.4 MG 1 capsule Orally O nce a day for 30 day(s) 09/05/2019 Active Finasteride 5 MG Oral for 90 A ctive Hydrochlorothiazide 25 MG Oral for 90 Active Famotidine 20 MG Oral for 90 A ctive Lisinopril 2.5 MG Oral for 90 Active Terazosin HCl 10 MG Oral for 90 Active Arthritis Pain Relief 650 MG 2 tablets a s needed Orally every 8 hrs Active Cartia XT 240 MG Oral for 90 A ctive Aspirin 81 MG 1 tablet Orally Once a day for 30 day(s) Active Docusate Sodium 100 MG 1 capsule as need ed Orally Once a day for 30 day(s) Active Immunizations Vaccine Route Administration Date Status Comme nts FLU (Past vaccine of unknown type) Unknown 09/05/2019 A dministered Social History Tobacco Use: Social History Observation Description Date Details (start date - stop date) Never Smoker NA - NA Tobacco Status: Question Answer Notes Patient is a never smoker Problems Problem Type SNOMED Code ICD Code Onset Dates Problem Status W/U Status Risk Notes Problem [id number] Lower urinary tract symptoms (LUTS) (R39.9) Active confirmed Problem 42874608 Bladder stone (N21.0) Active confirmed Plan Of Treatment No Information Insurance Providers Payer Name Payer Address Payer Phone Subscriber Number Group Number Insured Name Patient Relationship to Insured Coverage Start Date Coverage End Date [employer] PPO MEDICARE [address] [address] [place], [place] [id number] [phone] [id number] Nikolay Sparrow Self - patient is the insured 0 0 Medical (General) History Medical History History ICD Code HTN High Cholesterol Arthritis Surgical History Surgery Date(Month/Year) Shoulder replacement x 3 Back fusion Hospitalization History Reason Date(Month/Year) See Surgical hx
== END 2025-04-26 23:59 | disposition home or self-care (01) ==
LOC: LAB.DROPOF 04-28 11:13
PROVIDERS: PCP Internal Medicine; Visit Provider Internal Medicine
DX: I25.10 Atherosclerotic heart disease of native coronary artery without angina pectoris (principal); I10 Essential (primary) hypertension; E78.5 Hyperlipidemia, unspecified; F03.90 Unspecified dementia, unspecified severity, without behavioral disturbance, psychotic disturbance, mood disturbance, and anxiety
CPT/HCPCS: 80053; 80061